=== PATIENT | male | born 1960 | race Two or more races ===

== ENCOUNTER 2018-06-24 13:36 | Observation (INO) | payer OTHER ==
[~2018-06-24] VITALS: Ht 165.1 cm; Wt 71.9 kg
--- NOTE | 2018-06-24 13:54 | NUR ---
BREAK RN: THIS IS A 57 YO MALE WHO PRESENTS TO THE ER C/O SUDDEN ONSET OF DIZZINES/WEAKNESS/DIAPHORESIS WHILE AT WORK AT APPROX 1230. PT ABLE TO ANSWER ALL QUESTIONS APPROPRIATE BUT HAD A SLIGHT DELAY. PT DENIES FEELING CONFUSED OR UNABLE TO TALK BUT DOES STATE HE IS HAVING TROUBLE THINKING OF/SAYING CERTAIN WORDS. WHILE HERE, PT REPORTED BLURRED VISION DEVOLOPED. PT ABLE TO MOVE ALL EXTREMITIES W/O DIFFICULTY. SPEECH CLEAR. PERRLA. AT BEDSIDE. [facility] CALLED AT 1340. PT TO CT SCAN AT 1350. REPORT TO PRIMARY RN MARYBEL.
--- NOTE | 2018-06-24 13:54 | NUR ---
Tyree Loco called @ 0086 call returned @ 6701.
[2018-06-24 14:04] LABS: BASOPHILS # (AUTO) 0.06 x10^3/uL (0-0.1); BASOPHILS % (AUTO) 0 % (0-1); EOSINOPHILS # (AUTO) 0.26 x10^3/uL (0-0.4); EOSINOPHILS % (AUTO) 2 % (1-7); LYMPHOCYTES # (AUTO) 1.53 x10^3/uL (1-3.4); LYMPHOCYTES % (AUTO) 11 % (22-44); MD NO; MEAN CORPUSCULAR HEMOGLOBIN 31.5 pg (27.5-34.5); MEAN CORPUSCULAR HGB CONC 34.3 g/dL (33.2-36.2); MEAN CORPUSCULAR VOLUME 91.8 fL (81-97); MEAN PLATELET VOLUME 9.4 fL (7.4-10.4); MONOCYTES # (AUTO) 0.36 x10^3/uL (0.2-0.8); MONOCYTES % (AUTO) 3 % (2-9); NEUTROPHILS # (AUTO) 11.43 x10^3/uL (1.8-6.8); NEUTROPHILS % (AUTO) 84 % (42-75); PLATELET COUNT 175 x10^3/uL (130-400); RED BLOOD COUNT 4.21 x10^6/uL (4.38-5.82); RED CELL DISTRIBUTION WIDTH 13.1 % (9.4-14.8)
--- NOTE | 2018-06-24 14:05 | NUR ---
PT RETURN TO ROOM FROM CT. SR PER MONITOR. AUTO BP AND PULSE OX IN PLACE. PTS FAMILY AT BEDSIDE.
[2018-06-24 14:16] LABS: INTERNATIONAL NORMALIZED RATIO 0.95 (0.93-1.1); PROTHROMBIN TIME 10.1 Seconds (9.6-11.5)
[2018-06-24] MEDS ORDERED: ASPIRIN 325 MG TABLET EC PO ONE (14:30)
[2018-06-24] MEDS ORDERED: CHLO25TA PO (14:34)
[2018-06-24] MEDS ORDERED: ATOR20TA37 PO (14:34)
[2018-06-24] MEDS ORDERED: LOSA100T7 PO (14:34)
[2018-06-24] MEDS ORDERED: ASPIRIN 325 MG TABLET EC ONE (14:44)
--- NOTE | 2018-06-24 15:13 | NUR ---
CALL TO [facility], PT LAST FILLED IN FEB, FOR 3 MEDICATIONS. CALL TO [facility], DOXAZOSIN 4MG FILLED 05/13/18, NEVER PICKED UP. FAMILY TO BRING IN MEDICATIONS FROM HOME.
[2018-06-24] MEDS ORDERED: ONDANSETRON 4 MG TABLET PO PRN (15:30)
[2018-06-24] MEDS ORDERED: LABETALOL 5MG/ML, 20ML IV PRN (15:30)
[2018-06-24] MEDS ORDERED: GLUCAGON 1 MG IM PRN (15:30)
[2018-06-24] MEDS ORDERED: DEXTROSE 50%, 50ML SYRINGE IVPush PRN (15:30)
[2018-06-24] MEDS ORDERED: DEXTROSE 4 GM TAB.CHEW PO PRN (15:30)
[2018-06-24] MEDS ORDERED: ONDANSETRON 2MG/ML, 2ML IVPush PRN (15:30)
--- NOTE | 2018-06-24 15:51 | NUR ---
REPORT CALLED TO TERESITA CLAIRE. POC DISCUSSED. RN AWARE FAMILY TO BRING IN PT HOME MEDICATIONS TO COMPLETE MED REC. PT DENIES PAIN/SOB. NO NEURO CHANGES NOTED AT THIS TIME.
[2018-06-24] MEDS: INSULIN LISPRO 100 UNITS/ML, PEN SQ-INSULIN SCH ×2 (16:00→20:36)
[2018-06-24] MEDS: ENOXAPARIN 40 MG/0.4 ML SQ SCH (16:53)
[2018-06-24] MEDS ORDERED: POLYETHYLENE GLYCOL 17 GM PACKET PO PRN (18:30)
[2018-06-24] MEDS ORDERED: BISACODYL 10 MG SUPP PR PRN (18:30)
[2018-06-24 20:00] VITALS: BP 164/91
[2018-06-24] MEDS: ATORVASTATIN 20 MG TABLET PO SCH (21:20)
[2018-06-24] MEDS: SODIUM CHLORIDE FLUSH 10ML SYR IVF SCH (21:21)
[2018-06-25 02:00] VITALS: BP 172/92
[2018-06-25 05:52] LABS: CHOL/HDL RATIO 3.7; LDL/HDL RATIO 1.8 (0.5-3.0)
[2018-06-25 06:52] VITALS: BP 173/101
[2018-06-25] MEDS: INSULIN LISPRO 100 UNITS/ML, PEN SQ-INSULIN SCH ×4 (07:00→20:29)
[2018-06-25] MEDS: LOSARTAN 50MG TABLET PO SCH (07:45)
[2018-06-25] MEDS: CHLORTHALIDONE 25 MG TABLET PO SCH (07:45)
[2018-06-25] MEDS: ASPIRIN 81 MG TABLET CHEW PO/NG SCH (07:46)
[2018-06-25 08:57] LABS: BASOPHILS # (AUTO) 0.04 x10^3/uL (0-0.1); BASOPHILS % (AUTO) 1 % (0-1); EOSINOPHILS # (AUTO) 0.14 x10^3/uL (0-0.4); EOSINOPHILS % (AUTO) 2 % (1-7); LYMPHOCYTES # (AUTO) 1.53 x10^3/uL (1-3.4); LYMPHOCYTES % (AUTO) 21 % (22-44); MD NO; MEAN CORPUSCULAR HGB CONC 33.9 g/dL (33.2-36.2); MEAN CORPUSCULAR VOLUME 91.4 fL (81-97); MEAN PLATELET VOLUME 9.4 fL (7.4-10.4); MONOCYTES # (AUTO) 0.36 x10^3/uL (0.2-0.8); MONOCYTES % (AUTO) 5 % (2-9); NEUTROPHILS # (AUTO) 5.13 x10^3/uL (1.8-6.8); NEUTROPHILS % (AUTO) 71 % (42-75); PLATELET COUNT 182 x10^3/uL (130-400); RED BLOOD COUNT 4.16 x10^6/uL (4.38-5.82); RED CELL DISTRIBUTION WIDTH 13.1 % (9.4-14.8)
[2018-06-25 09:05] LABS: ALANINE AMINOTRANSFERASE 23 U/L (12-78); ALBUMIN 3.4 g/dL (3.4-5.0); ANION GAP 9 mmol/L (5-15); CALCIUM 8.3 mg/dL (8.5-10.1); CHLORIDE 109 mmol/L (98-107); CREATININE 1.24 mg/dL (0.7-1.3)
[2018-06-25 09:08] LABS: ALKALINE PHOSPHATASE 91 U/L (45-117); BILIRUBIN,TOTAL 0.9 mg/dL (0.2-1.0); TOTAL PROTEIN 6.8 g/dL (6.4-8.2)
[2018-06-25] MEDS ORDERED: POTASSIUM CHLORIDE 20 MEQ TAB.ER.PRT PO ONE (10:00)
[2018-06-25] MEDS: SODIUM CHLORIDE FLUSH 10ML SYR IVF SCH ×2 (10:49→20:27)
[2018-06-25 14:00] VITALS: BP 168/89
[2018-06-25] MEDS: ENOXAPARIN 40 MG/0.4 ML SQ SCH (15:30)
[2018-06-25 19:05] VITALS: BP 176/97
[2018-06-25 19:06] VITALS: BP 178/94
[2018-06-25 19:07] VITALS: BP 175/99
[2018-06-25] MEDS: ATORVASTATIN 20 MG TABLET PO SCH (20:25)
[2018-06-26 02:04] VITALS: BP 188/89
[2018-06-26] MEDS: hydrALAzine 20 MG/ML, 1ML IV PRN ×2 (02:34→14:30)
[2018-06-26] MEDS: INSULIN LISPRO 100 UNITS/ML, PEN SQ-INSULIN SCH ×2 (07:00→11:00)
[2018-06-26 07:17] VITALS: BP 172/106
[2018-06-26] MEDS: LOSARTAN 50MG TABLET PO SCH (07:53)
[2018-06-26] MEDS: CHLORTHALIDONE 25 MG TABLET PO SCH (07:53)
[2018-06-26] MEDS: ASPIRIN 81 MG TABLET CHEW PO/NG SCH (07:53)
[2018-06-26] MEDS: SODIUM CHLORIDE FLUSH 10ML SYR IVF SCH (07:57)
[2018-06-26] MEDS ORDERED: AMLO5TAB4 PO ×2 (08:19)
[2018-06-26] MEDS ORDERED: AMLODIPINE 5 MG TABLET PO SCH (09:00)
[2018-06-26 09:03] LABS: ANION GAP 8 mmol/L (5-15); CALCIUM 8.6 mg/dL (8.5-10.1); CHLORIDE 109 mmol/L (98-107); CREATININE 1.17 mg/dL (0.7-1.3)
[2018-06-26 09:09] VITALS: BP 187/113
[2018-06-26 09:19] LABS: HEMOGLOBIN A1C 5.8 % (4.2-6.3)
[2018-06-26 10:56] VITALS: BP 169/94
[2018-06-26] MEDS ORDERED: AMLODIPINE 5 MG TABLET PO ONE (11:30)
[2018-06-26 14:29] VITALS: BP 193/104
[2018-06-26] MEDS: ENOXAPARIN 40 MG/0.4 ML SQ SCH (15:30)
[2018-06-26] MEDS ORDERED: AMLO10TA4 PO (16:11)
[2018-06-26] MEDS ORDERED: AMLODIPINE 10 MG TAB PO SCH (21:00)
== END 2018-06-26 16:50 | disposition home or self-care (01) ==
LOC: ED 15:25 → 4EST 15:26 → INTOOBSV 15:26 → ED 15:52
PROVIDERS: ADMIT Hospitalist; ATTEND Hospitalist
DX: G90.8 Other disorders of autonomic nervous system (principal); I95.9 Hypotension, unspecified; I10 Essential (primary) hypertension; E11.43 Type 2 diabetes mellitus with diabetic autonomic (poly)neuropathy; Z79.82 Long term (current) use of aspirin; Z79.899 Other long term (current) drug therapy; Z87.891 Personal history of nicotine dependence; Z86.73 Personal history of transient ischemic attack (TIA), and cerebral infarction without residual deficits
CPT/HCPCS: 0399T; 36415; 70450; 70496; 70498; 70551; 80047; 80048; 80053; 80061; 82962; 83036; 85025; 85610; 85730; 92523; 93005; 93306; 93880; 96372; 96374; 96376; 97165; 99285; G0378; G8978; G8979; G8990; J0360; J1650